=== PATIENT | male | born 1995 | race Caucasian/White ===

== ENCOUNTER 2017-12-18 08:50 | Emergency (ER) | payer OTHER ==
[2017-12-18] MEDS ORDERED: KETOROLAC 60 MG/2 ML VIAL IVP STA (09:16)
--- NOTE | 2017-12-18 09:28 | ED Physician Documentation ---
PD HPI UPPER EXT INJURY - Stated complaint Stated Complaint: SHOULDER PX - Chief complaint Chief Complaint: Trauma Ext - History obtained from History obtained from: Patient, Family - History of Present Illness Location: Right, Shoulder Type of injury: Twist Where injury occurred: Home Timing - onset: How many hours ago (1) Timing - duration: Hours (1) Timing - details: Abrupt onset, Still present Improved by: Rest, Immobilization Worsened by: Moving, Palpating Associated symptoms: No: Weakness, Numbness, Tingling Contributing factors: No: Anticoagulated Similar symptoms before: Diagnosis (shoulder dislocation) Recently seen: Not recently seen - Additonal information Additional information: 22-year-old male with prior shoulder dislocations 4 has reach behind the seat of his car today and dislocated his right shoulder he is previously been able to relocate the shoulder by manipulation and today he has tried this and is unable to do this. He is coming in now and in pain and with an anterior shoulder dislocation. Review of Systems Constitutional: denies: Fever Eyes: denies: Decreased vision Nose: denies: Congestion Respiratory: denies: Cough GI: denies: Vomiting PD PAST MEDICAL HISTORY - Allergies Allergies/Adverse Reactions: Allergies Allergy/AdvReac Type Severity Reaction Status Date / Time No Known Drug Allergies Allergy Verified 12/18/17 09:10 PD ED PE NORMAL - Vitals Vital signs reviewed: Yes (normal ) - General General: Alert and oriented X 3, Well developed/nourished - HEENT HEENT: Atraumatic, PERRL, EOMI - Neck Neck: Supple, no meningeal sign - Respiratory Respiratory: No respiratory distress - Back Back: No CVA TTP, No spinal TTP - Derm Derm: Normal color, Warm and dry, No rash - Extremities Extremities: Other (There is deformity of the right shoulder consistent with an anterior shoulder dislocation. Distal n/v is intact. ) - Neuro Neuro: Alert and oriented X 3, collection advisor 2-12 intact, No motor deficit, No sensory deficit, Normal speech Eye Opening: Spontaneous Motor: Obeys Commands Verbal: Oriented GCS Score: 15 - Psych Psych: Normal mood, Normal affect Results - Vitals Vitals: Vital Signs - 24 hr 12/18/17 12/18/17 12/18/17 09:07 11:09 11:17 Temperature 36.6 C Heart Rate 61 67 75 Respiratory 14 24 24 Rate Blood Pressure 108/59 L 114/68 119/72 O2 Saturation 100 96 12/18/17 12/18/17 12/18/17 11:21 11:26 11:29 Temperature Heart Rate 78 77 74 Respiratory 18 20 16 Rate Blood Pressure 105/59 L 112/65 O2 Saturation 98 97 12/18/17 12:02 Temperature 36.6 C Heart Rate 78 Respiratory 20 Rate Blood Pressure 129/62 O2 Saturation 97 Oxygen O2 Source Room air - Rads (name of study) shoulder Radiology: Prelim report reviewed (Impression: 1. Anterior shoulder dislocation. 2. no apparent fracture.), EMP read indepedently, See rad report Procedures - Reduction Body part reduced: Right, Shoulder Fracture or dislocation: Dislocation Anesthesia: Conscious sedation Shoulder reduction technique: Traction - counter tract Reduction aftercare: NV intact, Xray confirms reduction, Alignment improved, Sling, Patient tolerated well - Procedural sedation Sedation prep: Informed consent, Time out completed, Last meal (4 hours), PE performed, AHA 1 - healthy, IV O2 monitor, ET CO2 monitor, RT present Sedation medications: dilaudid, toradol, propofol Patient status during sedation: Responds to tactile, Vitals remained stable, Maintained airway, Recovered uneventfully Sedation recovery: Recovered uneventfully, Back to baseline PD MEDICAL DECISION MAKING - ED course Complexity details: reviewed results, re-evaluated patient, considered differential, d/w patient, d/w family ED course: 22-year-old male with a right shoulder dislocation requires Toradol Dilaudid and propofol for reduction. Reduction is successful patient is improved and sling is placed he is ready to go home. - Sepsis Event Vital Signs: Vital Signs - 24 hr 12/18/17 12/18/17 12/18/17 09:07 11:09 11:17 Temperature 36.6 C Heart Rate 61 67 75 Respiratory 14 24 24 Rate Blood Pressure 108/59 L 114/68 119/72 O2 Saturation 100 96 12/18/17 12/18/17 12/18/17 11:21 11:26 11:29 Temperature Heart Rate 78 77 74 Respiratory 18 20 16 Rate Blood Pressure 105/59 L 112/65 O2 Saturation 98 97 12/18/17 12:02 Temperature 36.6 C Heart Rate 78 Respiratory 20 Rate Blood Pressure 129/62 O2 Saturation 97 Oxygen O2 Source Room air Departure - Departure Disposition: 01 Home, Self Care Clinical Impression: Shoulder dislocation Qualifiers: Encounter type: initial encounter Laterality: right Qualified Code(s): S43.004A - Unspecified dislocation of right shoulder joint, initial encounter Condition: Stable Instructions: ED Dislocation Shoulder Redu Follow-Up: NAVEED Escamilla [Provider Group] Discharge Date/Time: 12/18/17 12:10
--- NOTE | 2017-12-18 09:52 | XRAY Report ---
Procedure Date: 12/18/2017 Accession Number: [id number] / [id number] Procedure: XR - Shoulder 3 View RT CPT Code: FULL RESULT: EXAM: RIGHT SHOULDER RADIOGRAPHY EXAM DATE: 12/18/2017 09:33 AM. CLINICAL HISTORY: Anterior dislocation. COMPARISON: None. TECHNIQUE: 3 views. FINDINGS: Bones: No apparent fracture or bone lesion. Joints: There is anterior dislocation of the humeral head with respect to the glenoid. Soft tissues: The visualized hemithorax is unremarkable. No soft tissue swelling. IMPRESSION: 1. Anterior shoulder dislocation. 2. No apparent fracture. RADIA
[2017-12-18] MEDS ORDERED: PROPOFOL 200 MG/20 ML VIAL IVP STA (10:57)
[2017-12-18] MEDS ORDERED: HYDROmorphone 1 MG/ML CARPUJECT IVP STA (10:57)
[2017-12-18 12:03] VITALS: BP 129/62
--- NOTE | 2017-12-18 12:18 | XRAY Report ---
Procedure Date: 12/18/2017 Accession Number: [id number] / [id number] Procedure: XR - Shoulder 2 View RT CPT Code: FULL RESULT: EXAM: RIGHT SHOULDER RADIOGRAPHY EXAM DATE: 12/18/2017 11:45 AM. CLINICAL HISTORY: Post reduction. COMPARISON: 12/18/2017 at 0933 hrs.. TECHNIQUE: 2 views. FINDINGS: Bone/joints: Interval reduction of the previous glenohumeral dislocation. No definite fracture demonstrated. Soft tissues: The visualized hemithorax is unremarkable. No soft tissue swelling. IMPRESSION: 1. Interval reduction of the previous glenohumeral dislocation. 2. No definite fracture. RADIA
== END 2017-12-18 12:10 | disposition home or self-care (01) ==
LOC: ED 08:50
DX: S43.004A Unspecified dislocation of right shoulder joint, initial encounter (principal); X50.9XXA Other and unspecified overexertion or strenuous movements or postures, initial encounter; Y92.810 Car as the place of occurrence of the external cause
CPT/HCPCS: 23650; 73030; 94770; 99283; J1170

== ENCOUNTER 2020-01-30 13:52 | Emergency (ER) | payer OTHER ==
[2020-01-30] MEDS ORDERED: ONDANSETRON 4 MG/2 ML VIAL IVP STA (14:06)
[2020-01-30] MEDS ORDERED: fentaNYL 100 MCG/2 ML VIAL IVP STA ×2 (14:06→14:34)
--- NOTE | 2020-01-30 14:06 | ED Physician Documentation ---
PD HPI UPPER EXT INJURY - Stated complaint Stated Complaint: RT SHOULDER INJ - Chief complaint Chief Complaint: Trauma Ext - History obtained from History obtained from: Patient - History of Present Illness Location: Right, Shoulder Type of injury: Twist Where injury occurred: Other (car) Timing - onset: Today Timing - duration: Minutes Timing - details: Abrupt onset, Still present Improved by: Rest, Immobilization Worsened by: Moving, Palpating Associated symptoms: No: Weakness, Numbness Contributing factors: No: Anticoagulated Similar symptoms before: Diagnosis (shoulder dislocation) Recently seen: Not recently seen - Additonal information Additional information: 24-year-old male was in his car he reached around behind the seat to grab something and dislocated his right shoulder he has significant pain he has had this happen to him previously he had to have conscious sedation to relocate it then. Review of Systems Constitutional: denies: Fever Eyes: denies: Decreased vision Ears: denies: Ear pain Nose: denies: Congestion Throat: denies: Sore throat Respiratory: denies: Dyspnea, Cough GI: denies: Vomiting, Diarrhea Musculoskeletal: reports: Joint pain. denies: Neck pain Neurologic: denies: Generalized weakness, Focal weakness, Numbness PD PAST MEDICAL HISTORY - Past Medical History Past Medical History: No Cardiovascular: None Respiratory: None Neuro: None Endocrine/Autoimmune: None GI: None : None HEENT: None Psych: None Musculoskeletal: None, Other Derm: None - Past Surgical History Past Surgical History: Yes - Allergies Allergies/Adverse Reactions: Allergies Allergy/AdvReac Type Severity Reaction Status Date / Time No Known Drug Allergies Allergy Verified 01/30/20 13:55 - Social History Does the pt smoke?: No Smoking Status: Never smoker Does the pt drink ETOH?: Yes Does the pt have substance abuse?: No - Immunizations Immunizations are current?: Yes - POLST Patient has POLST: No PD ED PE NORMAL - Vitals Vital signs reviewed: Yes (hypertensive ) - General General: Alert and oriented X 3, Well developed/nourished, Other (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 and grunting) - HEENT HEENT: Atraumatic, PERRL, EOMI - Respiratory Respiratory: No respiratory distress - Derm Derm: Normal color, Warm and dry, No rash - Extremities Extremities: Other (Anterior fullness to the right shoulder pain associated with palpation and pain improved with traction on the arm) - Neuro Neuro: Alert and oriented X 3, quality auditor 2-12 intact, No motor deficit, No sensory deficit, Normal speech Eye Opening: Spontaneous Motor: Obeys Commands Verbal: Oriented GCS Score: 15 - Psych Psych: Normal mood, Normal affect Results - Vitals Vitals: Vital Signs - 24 hr 01/30/20 01/30/20 01/30/20 13:55 14:33 14:43 Temperature 36.9 C Heart Rate 65 68 67 Respiratory 18 21 21 Rate Blood Pressure 135/84 H 127/74 127/74 O2 Saturation 100 97 99 01/30/20 01/30/20 01/30/20 14:50 15:00 15:07 Temperature Heart Rate 67 67 75 Respiratory 23 20 17 Rate Blood Pressure 130/81 H 124/82 H 116/68 O2 Saturation 95 96 94 01/30/20 01/30/20 01/30/20 15:12 15:18 15:23 Temperature Heart Rate 72 63 65 Respiratory 23 22 24 Rate Blood Pressure 121/73 118/74 122/76 O2 Saturation 98 98 95 Oxygen O2 Source Room air - Rads (name of study) post reduction Radiology: Prelim report reviewed (Impression: Successful reduction of anterior inferior shoulder reduction dislocation. Hill-Sachs deformity.), EMP read indepedently, See rad report shoulder Radiology: Prelim report reviewed (Impression: Anterior shoulder dislocation. Potential Hill-Sachs deformity.), EMP read indepedently, See rad report Procedures - Reduction Body part reduced: Right, Shoulder Fracture or dislocation: Dislocation Anesthesia: Conscious sedation, Fentanyl, Propofol Shoulder reduction technique: Traction - counter tract Reduction aftercare: NV intact, Xray confirms reduction, Sling, Patient tolerated well - Procedural sedation Sedation prep: Informed consent, Time out completed, PE performed, ASA 1 - healthy, IV O2 monitor, ET CO2 monitor, RT present Sedation medications: fentanyl, propofol Patient status during sedation: Responds to tactile, Vitals remained stable, Maintained airway, Recovered uneventfully Sedation recovery: Recovered uneventfully, Back to baseline Time in sedation (Minutes): 17 (required repeated doses of propofol total dose of 300mg given incrementally. likely adequate dose would be >140mg. ) PD MEDICAL DECISION MAKING - ED course Complexity details: reviewed results, re-evaluated patient, considered differential, d/w patient ED course: 24y/o male with right shoulder dislocation has reduction with propofol and fentanyl. He required repeated doses of propofol for sedation enough to relax completely. Dr. Davis assisted with reduction. The patient tolerated this well, is placed into a sling and will follow up with ortho. Departure - Departure Disposition: 01 Home, Self Care Clinical Impression: Shoulder dislocation Qualifiers: Encounter type: initial encounter Laterality: right Qualified Code(s): S43.004A - Unspecified dislocation of right shoulder joint, initial encounter Condition: Stable Instructions: ED Dislocation Shoulder Redu Follow-Up: NAVEED Escamilla [Provider Group] Comments: There is a Hill-Sachs deformity to your right shoulder and this will make dislocation occur more easily. Follow-up with orthopedics at [facility] for further evaluation.
[2020-01-30] MEDS ORDERED: PROPOFOL 200 MG/20 ML VIAL IVP STA (14:33)
--- NOTE | 2020-01-30 14:43 | XRAY Report ---
PROCEDURE: Shoulder 3 View RT INDICATIONS: dislocation TECHNIQUE: 3 views of the shoulder were acquired. COMPARISON: 12/18/2017 FINDINGS: Bones: Anterior shoulder dislocation is seen. Although poorly seen, there is a presumed Hill-Sachs de formity seen. No definite bony Bankart fracture is seen. The visualized ribs are unremarkable. No suspicious lytic or blastic lesions are seen. Soft tissues: No suspicious soft tissue calcifications. The visualized lung demonstrates a normal a ppearance. IMPRESSION: Anterior shoulder dislocation. Potential Hill-Sachs deformity. Reviewed by: Harinder Coburn MD on 01/30/2020 1:42 PM AKDT Approved by: Harinder Coburn MD on 01/30/2020 1:42 PM AKDT Station ID: [id number]
[2020-01-30] MEDS ORDERED: PROPOFOL 200 MG/20 ML VIAL IVP ONE (15:02)
--- NOTE | 2020-01-30 15:31 | XRAY Report ---
PROCEDURE: Shoulder 2 View RT INDICATIONS: post reduction TECHNIQUE: 2 views of the shoulder were acquired. COMPARISON: 01/30/2020 at 1426 hours. FINDINGS: Bones: Successful reduction of shoulder dislocation. Hill-Sachs deformity. No additional fractures o r dislocations. No suspicious bony lesions. Visualized ribs appear intact. Soft tissues: No suspicious soft tissue calcifications. IMPRESSION: Successful reduction of anterior inferior shoulder dislocation. Hill-Sachs deformity. Reviewed by: Margarito Diego MD on 01/30/2020 3:29 PM PDT Approved by: Margarito Diego MD on 01/30/2020 3:29 PM PDT Station ID: [id number]
[2020-01-30 16:19] VITALS: BP 121/79
== END 2020-01-30 16:25 | disposition home or self-care (01) ==
LOC: ED 13:52
DX: S43.084A Other dislocation of right shoulder joint, initial encounter (principal); X50.1XXA Overexertion from prolonged static or awkward postures, initial encounter; Y92.810 Car as the place of occurrence of the external cause; R03.0 Elevated blood-pressure reading, without diagnosis of hypertension
CPT/HCPCS: 94770; 99152; 99284

== ENCOUNTER 2021-04-18 09:48 | Outpatient (CLI) | payer OTHER ==
--- NOTE | 2021-04-18 12:34 | MRI Report ---
PROCEDURE: Knee RT W/O INDICATIONS: PAIN IN RIGHT KNEE TECHNIQUE: Noncontrast sagittal PD fast spin echo and T2 fast spin echo with fat saturation, sagittal 3-D gradie nt sequence with fat saturation; coronal T1 spin echo and PD fast spin echo with fat saturation, and axial PD fast spin echo with fat saturation through the knee. COMPARISON: None. Findings: Medial meniscus: No surface communication/tear. Lateral meniscus: No surface communication/tear. LIGAMENTS/TENDONS: Patellar tendon: Intact. Distal quadriceps tendon: Intact. Hoffa's fat pad: No evidence of fibrosis or mass. PCL: Intact. ACL: Intact. Lateral collateral ligament complex: No significant abnormality. Posterolateral corner: No significant abnormality. Medial collateral ligament: No significant abnormality.. MARROW: No significant abnormality. CARTILAGE: No significant chondromalacia, cartilaginous laceration or contusion. Muscles: No significant edema or atrophy. Joint effusion/Luna's cyst: No large joint effusion or Luna's cyst. Subcutaneous soft tissues: No significant edema. IMPRESSION: 1. No evidence of internal derangement. Reviewed by: Guillermo Dean MD on 04/18/2021 12:32 PM PDT Approved by: Guillermo Dean MD on 04/18/2021 12:32 PM PDT Station ID: [id number]
== END 2021-04-18 09:49 | disposition home or self-care (01) ==
LOC: DI 09:48
PROVIDERS: ATTEND Student in an Organized Health Care Education/Training Program
DX: M25.561 Pain in right knee (principal)

== ENCOUNTER 2021-07-06 08:16 | Outpatient (CLI) | payer OTHER ==
[2021-07-06 09:01] VITALS: BP 129/85
--- NOTE | 2021-07-06 09:01 | SLEEP CARE CONSULTATION ---
Information from patient questionnaire entered by Marc Choudhary MA. I have reviewed and concur with the information entered by Marc Choudhary MA. This document represents the service I personally performed and the decisions made by me, Rosa Yoder ARNP. History of Present Illness Service Date and Time: 07/06/2021 0816 Reason for Visit: New patient (ONSET 06/2016, NO PRIORS) Chief Complaint: reports: Unrefreshed sleep (wakes up groggy, 3-4 hours until he feels awake), Snoring, Excessive daytime sleepiness, Observed pauses in breathing Date of Onset: 7 years Usual bedtime: 10 - 11 pm Time it takes to fall asleep: 30 minutes Snores at night: Yes Observed to quit breathing while asleep: Yes Sleeps alone due to snoring: No Number of times waking at night: 2 Reasons for waking at night: reports: Snoring, Bathroom, Other (unknown reason; legs will twitch and wake him up a few times a month) Toss, Turn, or Twitch while sleeping: Yes Recalls having dreams: Yes (sometimes, maybe 1-2 times a month) Usually gets out of bed at: 1358-0739 Feels refreshed in the morning: No Morning headache: No Sleepy or fatigued during the day: Yes Ever fallen asleep while driving: Yes (drowsy driving, no accidents) Takes day naps: Yes (1 x a week for 2-3 hours) Dreams during day naps: No Prior sleep studies: No Additional HPI information: I had the pleasure of seeing LYNN MARIO today regarding the possibility of him having a sleep disorder. His current complaints are excessive daytime sleepiness, observed pauses in breathing and snoring. He states that his tells him that he snores loudly a lot and has had times when he stops breathing in his sleep. He wakes up several times a night for no reason and the bathroom. He just doesn't feel rested at all. He will wake up tired and feel sleepy during the day. He states about once a month his legs will twitch hard and wake him up. He has woke himself up snoring but denies choking or gasping for air. 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 Patient is and lives in [place]. Have you smoked in the past 12 months: No Quit date: 3 years Alcohol use: Yes Alcohol amount and frequency: 3 x every other day Caffeine use: Yes Caffeine amount and frequency: 1 every other day Family History Family history of sleep disordered breathing: No Family Hx Sleep Apnea: Father: Snoring, Sleep apnea - Untreated Allergies and Home Medications Drug allergies reviewed: Yes (NKDA) Home medication list reviewed: Yes (no daily medications or supplements) Review of Systems Cardiovascular: denies: high blood pressure Gastrointestinal: denies: heartburn Neurological: denies: headaches Psychiatric: denies: anxiety, depression Ear/Nose/Throat: reports: tonsillectomy, wisdom teeth removed Musculoskeletal: reports: back pain Physical Exam Vital signs obtained and entered by: COLTEN VEGA Blood Pressure: 129/85 (RIGHT, PULSE 64) Cuff size: wrist Heart Rate: 72 O2 Saturation: 98 (WITH PAPER MASK) Height: 5 ft 9 in Weight: 209 lb (WITH CLOTHES) Body Mass Index: 30.8 BMI Classification: Obese Neck circumference: 15.1 (inches) Mouth and throat: narrow oropharynx Soft palate: long Hard palate: normal Uvula: normal Uvula visualization: 25% Mallampati Class III Tongue: enlarged in size with teeth trivedi on lateral edges Tonsils: absent bilaterally Neck: normal w/o lymphadenopathy or thyromegaly Heart: regular rate and rhythm Lungs: clear bilaterally Impression and Plan 1. Suspected Obstructive Sleep Apnea-Hypopnea Syndrome, as suggested by a history of loud and irregular snoring, observed cessation of breath while asleep, frequent awakenings during the night, unrefreshed sleep, and excessive daytime sleepiness. Narrow oropharynx and obesity are common predisposing factors for obstructive sleep apnea-hypopnea syndrome. I recommend proceeding to polysomnography to confirm the diagnosis and to assess severity. If the patient has significant sleep disordered breathing, a manual CPAP titration study will also be performed to find the optimal treatment pressure. I informed the patient of what the sleep studies involve and after some discussion, obtained agreement to proceed. The pathophysiology of obstructive sleep apnea-hypopnea syndrome was discussed with the patient and health risks of cardiovascular and cerebrovascular disease if not treated. 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 Patient agreed to plan. * Schedule polysomnography +- manual CPAP titration study and return in 1-2 weeks after the study to discuss result and initiate therapy. * Avoid long distance driving or driving when feeling sleepy. * Avoid alcohol, sedative and muscle relaxant around bedtime. * Attempt to lose weight. * Review instructions provided by trained office staff on how to prepare for the sleep study. * Return for follow-up after sleep study completed. Counseling Topics: Weight loss health impact Visit Type: In Office Time Spent with Patient (minutes): 30 Provider Statement: I spent 100% of the Face to Face Visit with the patient with greater than 50% spent counseling the patient and coordination of care.
== END 2021-07-06 08:17 | disposition home or self-care (01) ==
LOC: SC 08:16
PROVIDERS: ATTEND Nurse Practitioner Family
DX: R06.83 Snoring (principal); R06.81 Apnea, not elsewhere classified; G47.8 Other sleep disorders; G47.10 Hypersomnia, unspecified; E66.9 Obesity, unspecified; Z68.30 Body mass index [BMI] 30.0-30.9, adult
CPT/HCPCS: 99203; 99212

== ENCOUNTER 2021-08-01 20:24 | Outpatient (CLI) | payer OTHER | END 2021-08-01 20:25 | disposition home or self-care (01) | LOC: SC 20:24 | PROVIDERS: ATTEND Nurse Practitioner Family | DX: G47.61 Periodic limb movement disorder (principal) | CPT/HCPCS: 95810 ==

== ENCOUNTER 2021-08-16 09:01 | Outpatient (CLI) | payer OTHER ==
--- NOTE | 2021-08-16 09:31 | SLEEP CARE CONSULTATION ---
Information from patient questionnaire entered by Marc Choudhary MA. I have reviewed and concur with the information entered by Marc Choudhary MA. This document represents the service I personally performed and the decisions made by Beba garza Caren J, ARNP. History of Present Illness Service Date and Time: 08/16/2021 09 Initial [place] Sleepiness Scale score: 17 (2021) Current [place] Sleepiness Scale score: 8 (2021) Additional HPI information: LYNN MARIO returnswith partner for follow up and results of the recently performed polysomnography. The patient was informed of the following findings: No significant sleep diso rdered breathing with an average AHI of 2.1 and denice oxygen saturation of 89%. Mild periodic leg movements of sleep were noted. I explained the pathophysiology behind obstructive sleep apnea. Patient does not have sleep apnea and was advised how weight gain could increase the risk of developing sleep apnea in the future. I strongly encouraged the patient to lose weight. Patient has light to moderate snoring. Snoring can be reduced by weight loss. Weight loss is best achieved with diet consult. Patient instructed to contact PCP for referral. Snoring can also be treated with an oral appliance from a dentist. Advised to check insurance coverage. In addition, an ENT evaluation can be do to see if other treatment is indicated. Patient counseled not drink alcohol less than 4 hours before bedtime as it can increase snoring and apnea. Patient was cautioned about risks of drowsy driving until sleepiness symptoms resolve. Sleep Study - Results Type of Sleep Study: Polysomnography (F/U POLY) Prior sleep studies: No Polysomnography/Home Sleep Study results: IMPRESSION: The quality of the study is good. The patient had normal sleep efficiency. The sleep architecture was normal as well. Respiratory monitoring showed no significant sleep disordered breathing sleep-disordered breathing (AHI = 2.1) or hypoxia (denice oxygen saturation of 89%). The rare respiratory events occurred more frequently during supine sleep (supine AHI = 2.3; non-supine = 1.00). Snore was light to moderate in intensity. There was mild periodic leg movement of sleep not associated with sleep fragmentation. Cardiac rhythm was normal sinus rhythm without significant arrhythmia. No abnormal behavior (parasomnia) observed during the night. CONCLUSIONS and RECOMMENDATIONS: 1. Periodic leg movement (ICD G47.61), mild, treatment may be indicated. Clinical correlation advised. Allergies and Home Medications Known drug allergies: No Drug allergies reviewed: Yes Home medication list reviewed: Yes (no changes) Allergy and home medication list: Allergies No Known Drug Allergies Allergy (Verified 01/30/20 13:55) Review of Systems Review of systems same as previous: Yes (no changes) Physical Exam Vital signs obtained and entered by: Yrn CHOUDHARY CMA AACLAUDINE Blood Pressure: 136/95 (left, pulse 71, resp 18) Cuff size: wrist Heart Rate: 68 O2 Saturation: 97 (with paper msk) Height: 5 ft 9 in Weight: 204 lb (pt clothes) Body Mass Index: 30.1 BMI Classification: Obese Impression and Plan 1. Snoring but no significant sleep disordered breathing. Patient advised that often weight loss will reduce snoring as well as apnea risk. An oral appliance can also be used for snoring. This would require a dental consultation. Patient cautioned not to use other online appliances as can cause bite issues. A list of accredited dentists in [facility] and one local dentist who makes oral appliances is available in office. Patient is advised to check if insurance will cover. An ENT consult can also be helpful to determine if any other treatment is an option. 2. Periodic limb movement, mild, that did not fragment patients sleep. Periodic limb movement of sleep (PLMS) is characterized by episodes of repetitive limb movements that occur during sleep and usually involve the lower limbs. The etiology is unknown but can be associated with restless leg syndrome (RLS), a low serum ferritin level, neuropathy, spinal cord diseases, kidney disease, rheumatological disorders, narcolepsy, obstructive sleep apnea, and REM sleep behavior disorder. Caffeine can also aggravate PLMS and should be avoided. Sleep hygiene methods can also improve sleep as well as lifestyle changes such as regular exercise. Patient was advised that no treatment is needed at this time. If symptoms increase, then further evaluation is indicated. * Follow up with PCP on PLMs as needed * Attempt to lose weight * Avoid alcohol consumption near bedtime * The patient is cautioned about driving until sleepiness is completely resolved. * Return as needed for follow up. Counseling Topics: Weight loss health impact Visit Type: In Office Time Spent with Patient (minutes): 20 Provider Statement: I spent 100% of the Face to Face Visit with the patient with greater than 50% spent counseling the patient and coordination of care.
[2021-08-16 09:32] VITALS: BP 136/95
== END 2021-08-16 09:02 | disposition home or self-care (01) ==
LOC: SC 09:01
PROVIDERS: ATTEND Nurse Practitioner Family
DX: R06.83 Snoring (principal); G47.61 Periodic limb movement disorder; E66.9 Obesity, unspecified; Z68.30 Body mass index [BMI] 30.0-30.9, adult
CPT/HCPCS: 99212; 99213